=== PATIENT | male | born 1975 | race Caucasian/White ===

== ENCOUNTER 2024-01-09 16:09 | Emergency (ER) | payer MEDICAID, OTHER ==
[~2024-01-09] VITALS: Ht 170.2 cm; Wt 63.5 kg
[~2024-01-09 16:09] MED LIST: CEPH250C16 PO; GLIP10TA3 PO; METF-1253 PO
[2024-01-09 16:42] VITALS: BP 170/98; PULSE 83; RESP 17; TEMP 98.2; O2SAT 100
== END 2024-01-09 17:48 | disposition home or self-care (01) ==
LOC: MED 16:09
DX: H43.811 Vitreous degeneration, right eye (principal); H43.11 Vitreous hemorrhage, right eye; R03.0 Elevated blood-pressure reading, without diagnosis of hypertension; E11.319 Type 2 diabetes mellitus with unspecified diabetic retinopathy without macular edema; I10 Essential (primary) hypertension; Z79.84 Long term (current) use of oral hypoglycemic drugs; Z79.2 Long term (current) use of antibiotics; E78.5 Hyperlipidemia, unspecified
CPT/HCPCS: 82948; 99284